=== PATIENT | male | born 1990 | race Caucasian/White ===

== ENCOUNTER → 2020-12-30 09:36 | Outpatient (BNVA) | payer BC, SELFPAY | PROVIDERS: PCP Nurse Practitioner; Referring Provider Family Medicine; Visit Provider Surgery | DX: K40.90 Unilateral inguinal hernia, without obstruction or gangrene, not specified as recurrent (principal); Z20.822 Contact with and (suspected) exposure to COVID-19 | CPT/HCPCS: 87635 ==

== ENCOUNTER 2021-01-04 06:21 | Day surgery (SDC) | payer BC, MEDICAID, SELFPAY ==
[2021-01-03 11:28] VITALS: BMI 25.7
[2021-01-04 06:34] VITALS: BP 157/100; PULSE 63; RESP 18; TEMP 36.1; O2SAT 97
--- NOTE | 2021-01-04 06:34 | P.ANESASSM_ITS ---
Pre-Anesthetic Assessment Pre-Anesthetic Assessment: Height/Weight: Height 1.88 m Weight 90.718 kg Preop Diagnosis: left inguinal hernia Proposed Procedure: Operation Date: 01/04/21 07:00 Proposed Procedures p Laparoscopic [place]guinal [place] [address]11 K40.9(Not Applicable) - Jensen Lee MD Familial anesthetic complications: none Was Beta Jarvis taken within 24 hours: N/A Was Clonidine taken within 24 hours: N/A Last intake: . 8hrs Social: Social History: Tobacco and No alcohol Exam: Pre-Anes Outpt Exam: alert, oriented x 3, clear to auscultation bilaterally and regular rate & rhythm Airway: Cervical ROM: WNL MP: 2 Dentition: Chipped (cracked front tooth) CV/HEM: CV/HEM: HTN Anesthetic Plan: ASA status: 2 Anesthesia: General Risk of > 500 ml blood loss (7ml/kg in children): No PFSH Anesthesia PFSH: Medical History (Updated 12/30/20 @ 09:29 by Jensen Lee MD) Hypertension Family History Other Hypertension Social History Alcohol intake: current Alcohol intake frequency: few times a month Data Anesthesia Cardiac Studies: 2 No Data to Display
[2021-01-04] MEDS: sodium chloride 0.9% 1,000 ML 30 ML IV (06:45)
--- NOTE | 2021-01-04 06:50 | W.PM.OPSUD ---
Surgery/Procedure H&P Update DATE OF PROCEDURE: January 04, 2021 DATE H&P PERFORMED: 12/30/20 H&P UPDATE INFORMATION: I have reviewed H&P completed within last 30 days, I have examined patient prior to procedure and No changes to prior documentation PREOP DIAGNOSIS: left inguinal hernia PLANNED PROCEDURE: Operation Date: 01/04/21 07:00 Proposed Procedures p Laparoscopic Inguinal [place]ia [place] 20952 K40.9(Not Applicable) - Jensen Lee MD
--- NOTE | 2021-01-04 07:56 | PM.OP ---
Operative Report Date of procedure: January 04, 2021 Pre-op Diagnosis: left inguinal hernia Post-op Findings: Left reducible direct inguinal hernia Procedure Done: Laparoscopic total extraperitoneal repair of left reducible direct inguinal hernia with Surgimax 3D mesh 16 x 10.8 cm Pathology: none sent Surgeon: Jensen Lee Anesthesia: General Condition: stable Disposition: PACU Procedure: The patient was taken to the operating room. After IV antibiotic was administered, the abdomen was prepped and draped in a sterile manner. Using a 15 blade, a 1.0 cm transverse incision was made infraumbilically on the left side. Subcutaneous tissue was divided using electrocautery and the anterior rectus sheath divided using an 11 blade. The rectus muscle was retracted laterally and the extraperitoneal space identified. A 11 mm port was placed and 15 mm of pneumoperitoneum was created. A 10 mm 30? scope was introduced and the retrorectus space was opened using the camera up to the pubic symphysis and 5 mm ports were placed in the midline, one 2-fingerbreadths above the pubic symphysis and the other midway between these two ports under direct visualization. Blunt dissection was carried out to open up the tissue in the midline and to the pubic symphysis, which was identified. The dissection was then carried laterally where the iliopubic tract was identified. There was no femoral, or obturator hernia noted. There was a direct hernia which was reduced. The inferior epigastric artery was identified and dissection was carried posterior to it and laterally, the space was opened up to the level of the umbilicus superior to the anterior superior iliac spine. I then proceeded to dissect out the spermatic cord and the peritoneal edge was peeled away from the spermatic cord. 16 x 10.8 cm Ultrapro mesh was rolled and introduced through the 10 mm port and then rolled laterally and apposed well against the abdominal wall to cover the myopectineal orifice completely and secured with Securestraps. 10 Cc of 0.5% Marcaine was infiltrated into the preperitoneal space. The extraperitoneal space was desufflated under direct visualization to ensure no slippage of hernial sac under the mesh. All ports were removed, the anterior rectus fascia at the infraumbilical port closed using figure of eight 0 Vicryl sutures, subcutaneous tissue approximated using 3-0 Vicryl sutures and skin at all three port sites were closed using running subcuticular 4-0 Monocryl sutures and Dermabond. 10 mL of 0.5% Marcaine was infiltrated at the port sites. The patient was stable throughout the procedure.
[2021-01-04 08:15] VITALS: BP 150/99; PULSE 89; RESP 18; TEMP 36.6; O2SAT 92
[2021-01-04 08:20] VITALS: BP 159/100; PULSE 81; RESP 18; O2SAT 92
[2021-01-04 08:24] VITALS: BP 149/100; PULSE 73; RESP 18; TEMP 36.4; O2SAT 94
[2021-01-04 08:45] VITALS: BP 152/96; PULSE 76; RESP 18; TEMP 36.4; O2SAT 94
[2021-01-04] MEDS: HYDROcodone-acetaminophen 5-325 mg Tablet 1 TAB PO (08:53)
--- NOTE | 2021-01-04 15:06 | ANE.PACU2 ---
Inpatient post-anesthesia follow up: Airway intact: Yes Vital signs: Temperature 97.6 F Pulse Rate 76 Respiratory Rate 18 Blood Pressure 152/96 Pulse Oximetry 94 Oxygen Delivery Me thod Room Air Oxygen Flow Rate Fraction of Inspir ed Oxygen Hydration adequate: Yes Nausea and vomiting: No Pain level: 2 Mental status: Baseline
== END 2021-01-04 09:10 | disposition home or self-care (01) ==
PROVIDERS: PCP Nurse Practitioner; Visit Provider Surgery
PROC: (CPT 49650; principal; 2021-01-04 07:00)
DX: K40.90 Unilateral inguinal hernia, without obstruction or gangrene, not specified as recurrent (principal); I10 Essential (primary) hypertension
CPT/HCPCS: 49650; C1781; J0690; J1100; J1885; J2250; J2405; J2704; J2710; J3010; J3490; J7030